=== PATIENT | male | born 1980 ===

== ENCOUNTER 2017-11-30 20:35 | Emergency (ER) | payer BC ==
[2017-11-30 21:29] VITALS: PULSE 84; RESP 16; TEMP 98.4; O2SAT 97; BMI 31.4
[2017-11-30 21:33] VITALS: BP 149/90
[2017-11-30] MEDS ORDERED: Albuterol 0.083% Inhal Sol (2.5 mg/3 mL) UD IH STA (21:50)
--- NOTE | 2017-11-30 21:54 | ED PDOC ---
Arrival/HPI - General Chief Complaint: Flu-like Symptoms Time Seen by Provider: 11/30/17 20:41 Historian: Patient - History of Present Illness Narrative History of Present Illness (Text): 11/30/17 21:52 37yr old male presents today with a 1 one week history of cough, nasal congestion, sore throat and subjective fevers/chills at home. pt states he now has developed left sided ear pain. pt describes a throbbing sensation to the left ear. denies decreased hearing. pt denies cp or sob. pt c/o dry cough. denies abdominal pain. no n/v/d/c. no sick contacts at home. Time/Duration: 1 week Symptom Onset: Gradual Symptom Course: Worsening Quality: Aching, Burning, Throbbing Severity Level: 4 Past Medical History - Provider Review Nursing Documentation Reviewed: Yes - Travel History Have you recently traveled outside [place] w/in the past 3 mons?: No - Tetanus Immunization Tetanus Immunization: Unknown - Psychiatric Hx Substance Use: No Family/Social History - Physician Review Nursing Documentation Reviewed: Yes Family/Social History: Unknown Family HX Smoking Status: Never Smoked Hx Alcohol Use: Yes Frequency of alcohol use: Socially Hx Substance Use: No Allergies/Home Meds Allergies/Adverse Reactions: Allergies No Known Allergies Allergy (Verified 11/30/17 21:28) Review of Systems - Review of Systems Constitutional: Fevers. absent: Fatigue ENT: Sore Throat, Sinus Congestion, Other (left ear pain) Respiratory: Cough. absent: SOB Cardiovascular: absent: Chest Pain, Palpitations Gastrointestinal: absent: Abdominal Pain, Nausea, Vomiting Genitourinary Male: absent: Dysuria Musculoskeletal: absent: Arthralgias Skin: absent: Rash, Pruritis Neurological: absent: Headache, Dizziness Psychiatric: absent: Anxiety, Depression Physical Exam Vital Signs Reviewed: Yes Vital Signs Temp Pulse Resp BP Pulse Ox 11/30/17 21:32 149/90 11/30/17 21:26 98.4 F 84 16 97 Temperature: Afebrile Blood Pressure: Hypertensive Pulse: Regular Respiratory Rate: Normal Appearance: Positive for: Well-Appearing, Non-Toxic, Comfortable Pain Distress: None Mental Status: Positive for: Alert and Oriented X 3 - Systems Exam Head: Present: Atraumatic Pupils: Present: PERRL Extroacular Muscles: Present: EOMI Conjunctiva: Present: Normal Ears: Present: Erythema (left TM erythema). No: Normal Canal Mouth: Present: Moist Mucous Membranes, Normal Lips, Normal Tounge. No: Drooling, Trismus Pharnyx: Present: ERYTHEMA. No: EXUDATE, TONSILS ENLARGED, Peritonsilar Swelling, Uvular Deviation, Muffled/Hoarse Voice, Strider, Soft Palate/Uvular Edema Nose (External): Present: Atraumatic Nose (Internal): Present: Clear Mucous Neck: Present: Normal Range of Motion, Trachea Midline. No: Meningeal Signs, Lymphadenopathy Respiratory/Chest: Present: Clear to Auscultation, Good Air Exchange, Rhonchi. No: Respiratory Distress, Accessory Muscle Use, Tachypneic Cardiovascular: Present: Regular Rate and Rhythm, Normal S1, S2. No: Murmurs Abdomen: No: Tenderness, Rebound, Guarding Upper Extremity: Present: Normal ROM Lower Extremity: Present: Normal ROM Neurological: Present: GCS=15, Speech Normal Skin: Present: Warm, Dry, Normal Color. No: Rashes Psychiatric: Present: Alert, Oriented x 3 Medical Decision Making ED Course and Treatment: 11/30/17 21:57 Patient is nontoxic well-appearing. C/o sore throat, cough, nasal congestion and left sided ear pain. tylenol PO albuterol given: rapid strep; negative cxr; no infiltrate reviewed by dr. valentin. Tamiflu po zithromax po Patient reassessment: Pt feeling better; vitals stable. discussed all results with patient. I advised follow up with primary care physician within the next 2 days. I advised increase fluids and return if symptoms worsen persist or if new symptoms develop. advised f/u with pmd for elevated BP. Patient verbalizes understanding of discharge instructions and need for immediate followup. all aspects of this case were discussed the attending of record. IMPRESSION; cough, otitis media, pharyngitis Motrin one tablet every 6 hours as needed for pain/fever reduction Tamiflu: 1 capsule twice daily 5 days zithromax; 1 tablet daily x 4 days. albuterol; 2 puffs every 4-6 hours as needed for cough albuterol nebulizer; 3 times daily as needed for cough. Increase fluids Followup with primary care physician the next 2 days Return if symptoms worsen persist or if new symptoms develop: Continued high fevers, dizziness, weakness, chest pain or shortness of breath vomiting/diarrhea , or if any other concerning symptoms develop - Lab Interpretations Lab Results: Lab Results 11/30/17 21:35: Grp A Beta Strep Ag Negative - RAD Interpretation Radiology Orders: 11/30/17 21:45 CHEST TWO VIEWS (PA/LAT) [RAD] Stat - Medication Orders Current Medication Orders: Discontinued Medications Acetaminophen (Tylenol 325mg Tab) 975 mg PO STAT STA Stop: 11/30/17 21:51 Last Admin: 11/30/17 21:59 Dose: 975 mg MAR Pain/Vitals Document 11/30/17 21:59 SS (Rec: 11/30/17 22:02 SS [id number]) Location Pain Location Body Site Throat Albuterol Sulfate (Albuterol 0.083% Inhal Olivia (2.5 Mg/3 Ml) Ud) 2.5 mg IH STAT STA Stop: 11/30/17 21:51 Last Admin: 11/30/17 21:59 Dose: 2.5 mg Azithromycin (Zithromax) 500 mg PO STAT STA PRN Reason: Protocol Stop: 11/30/17 23:30 Oseltamivir Phosphate (Tamiflu Cap) 75 mg PO STAT STA PRN Reason: Protocol Stop: 11/30/17 23:30 Disposition/Present on Arrival - Present on Arrival Any Indicators Present on Arrival: No History of DVT/PE: No History of Uncontrolled Diabetes: No Urinary Catheter: No History of Decub. Ulcer: No History Surgical Site Infection Following: None - Disposition Have Diagnosis and Disposition been Completed?: Yes Diagnosis: Cough, Otitis media, Pharyngitis Disposition: HOME/ ROUTINE Disposition Time: 23:33 Patient Plan: Discharge Condition: GOOD Discharge Instructions (ExitCare): Sore Throat in Adults, Ear Infections ( Otitis Media) (DC), Cough, Adult (DC) Additional Instructions: Motrin one tablet every 6 hours as needed for pain/fever reduction Tamiflu: 1 capsule twice daily 5 days zithromax; 1 tablet daily x 4 days. albuterol; 2 puffs every 4-6 hours as needed for cough albuterol nebulizer; 3 times daily as needed for cough. Increase fluids Followup with primary care physician the next 2 days Return if symptoms worsen persist or if new symptoms develop: Continued high fevers, dizziness, weakness, chest pain or shortness of breath vomiting/diarrhea , or if any other concerning symptoms develop Prescriptions: Albuterol HFA [Ventolin HFA 90 mcg/actuation (8 g)] 2 puff IH [id number] PRN #1 inhaler PRN Reason: Cough Albuterol 0.083% [Albuterol 0.083% Inhal Olivia (2.5 mg/3 ml) UD] 1 vial IH TID PRN #1 packet PRN Reason: Cough Azithromycin [Zithromax] 250 mg PO DAILY #4 tab Ibuprofen [Motrin] 600 mg PO Q6H PRN #20 tab PRN Reason: pain/fever reduction Nebulizer [Compact Compressor Nebulizer] 1 dev XX PRN PRN #1 dev PRN Reason: Cough Oseltamivir [Tamiflu] 75 mg PO BID #10 cap Referrals: Luis Gardner DO [Primary Care Provider] - Follow up with primary Forms: [employer] (Serbian), WORK NOTE
--- NOTE | 2017-12-01 08:57 | RAD ---
HISTORY: cough COMPARISON: No prior. TECHNIQUE: Chest PA and lateral FINDINGS: LUNGS: No active pulmonary disease. PLEURA: No significant pleural effusion identified. No pneumothorax apparent. CARDIOVASCULAR: No radiographic findings to suggest acute or significant cardiovascular disease. OSSEOUS STRUCTURES: No significant abnormalities. VISUALIZED UPPER ABDOMEN: Normal. OTHER FINDINGS: None. IMPRESSION: No active disease. Concordant results with the preliminary interpretation rendered by the emergency department physician procedure.
== END 2017-12-01 | disposition home or self-care (01) ==
LOC: ED 20:35
DX: H66.92 Otitis media, unspecified, left ear (principal); J02.9 Acute pharyngitis, unspecified; R05 Cough

== ENCOUNTER 2018-10-01 23:38 | Emergency (ER) | payer BC ==
[2018-10-01 23:39] VITALS: BMI 31.4
== END 2018-10-01 23:46 | disposition left against medical advice (07) ==
LOC: ED 23:38
DX: Z02.89 Encounter for other administrative examinations (principal); S69.90XA Unspecified injury of unspecified wrist, hand and finger(s), initial encounter